=== PATIENT | female | born 1990 | race Caucasian/White ===

== ENCOUNTER 2023-03-17 13:08 | Emergency (ER) | payer OTHER ==
[2023-03-17 13:13] VITALS: BMI 35.4
[2023-03-17 13:14] VITALS: TEMP 97.7
[2023-03-17] MEDS ORDERED: EPINEPHrine 1:1,000 0.3 MG/0.3 ML SYR IM ONE (13:19)
[2023-03-17] MEDS ORDERED: EPINEPHrine/PF 1 MG/1 ML (1:1,000) AMPULE ONE (13:25)
[2023-03-17] MEDS ORDERED: SODIUM CHLORIDE 0.9% 500 ML INFUS.BAG IV ONE (13:26)
[2023-03-17 13:47] VITALS: BP 116/66; PULSE 76; RESP 18
== END 2023-03-17 15:20 | disposition home or self-care (01) ==
LOC: JER 13:08
PROC: 3E033GC Introduction of Other Therapeutic Substance into Peripheral Vein, Percutaneous Approach (ICD-10-PCS; principal; 2023-03-17)
PROC: 3E023GC Introduction of Other Therapeutic Substance into Muscle, Percutaneous Approach (ICD-10-PCS; 2023-03-17)
DX: T78.2XXA Anaphylactic shock, unspecified, initial encounter (principal); T78.40XA Allergy, unspecified, initial encounter
CPT/HCPCS: 99284-25; J0171